=== PATIENT | female | born 1960 | race Caucasian/White ===

== ENCOUNTER → 2016-10-11 | Outpatient (CLI) | payer MEDICARE ==
[~2016-10-11] MED LIST: ACTOS PO; ALPRAZOLAM PO; ASPIRIN PO; ASPIRIN81 M2 PO; ATENOLOL PO; BENICAR HCT 40-1 TA1 PO; BYETTA10 MCG/0.0 INJ; CADUET 5 MG/101 TAB PO; CELEXA PO; COZAAR25 MG PO; CYMBALTA PO; DARVOCET-N 1001 TAB PO; DESYREL50 MG PO; DIABETA2.5 MG PO; DIOVAN PO; EFFEXOR XR PO; GLUCOPHAGE XR500 MG PO; GLUCOTROL PO; GLUCOVANCE PO; HUMALOG MIX 75/10 ML SQ; HUMALOG MIX 75/23 ML; HUMALOG100 U/ML; HUMULIN 70/30 V10 ML SQ; HYDROCODON-ACE1 EAC7 PO; LASIX PO; LEVEMIR SUBQ; LIPITOR PO; LOSARTAN-HCTZ1 EAC1 PO; METFORMIN HCL500 M1 PO; METFORMIN PO; MICRO-K10 MEQ PO; MULTI VITAMIN1 EACH PO; NORVASC PO; NOVOLOG INSULIN SQ; PRAVACHOL PO; PRILOSEC PO; RELAFEN PO; SEVELLA PO; SIMVASTATIN20 MG PO; SIMVASTATIN5 MG PO; TENORMIN50 MG PO; TOPAMAX PO; TRAMADOL HCL50 M2 PO; TRAZODONE PO; TRESIBA; ULTRAM PO; VICTOZA
--- NOTE | ~2016-10-11 | MY11 ---
[facility] A Service [facility] RADIOLOGY TEXT RESULTS PATIENT: XI ORLANDO LOCATION: [facility] : 60 UNIT #: [id number] AGE: [address]: Skye Ramirez APRN SEX: F ORDER DR: [id number] [address] [id number] [id number] O MR#: [id number] Acc #: [id number] NAME: XI ORLANDO : 1960 SEX: F STUDY DATE/TIME: 10/11/2016 9:54 UNIT: [facility] ROOM: STUDY DESCRIPTION: MY Mammogram Screening Dig Yao Attending Physician: Skye Ramirez A.P.R.N. Referring Physician: Skye Ramirez A.P.R.N. Ordering Physician: Skye Ramirez A.P.R.N. Primary Care Physician: Skye Ramirez A.P.R.N. MEDICAL IMAGING REPORT This report is preliminary unless electronic signature is present. EXAM Digital screening mammogram with CAD INDICATION Routine screening. PROCEDURE Bilateral CC and MLO views and a right XCCL view obtained on a digital mammography unit. FDA-approved CAD device utilized. COMPARISON 10/03/2015 FINDINGS Scattered fibroglandular density. No dominant mass or suspicious calcification. IMPRESSION Negative screening mammogram. Screening interval in 1 year is suggested. Patients over the age of 40 are entered into a reminder system with target due date for the next mammogram. A result letter will also be sent to the patient. BIRADS: 1 Negative Dictated by... Jeffrey Forbes M.D. THIS IS AN ELECTRONICALLY VERIFIED REPORT [facility] A Service [facility] RADIOLOGY TEXT RESULTS PATIENT: XI ORLANDO LOCATION: [facility] : 60 UNIT #: [id number] AGE: [address]: Skye Ramirez APRN SEX: F ORDER DR: Jeffrey Forbes M.D. at 10/14/2016 7:43 AM ENRIQUE/abelardo TD: 10/11/2016 16:15 JOB #: [id number] MEDICAL IMAGING REPORT Page 1 of 1
== END | disposition home or self-care (01) ==
LOC: SMAM 09:11
DX: Z12.31 Encounter for screening mammogram for malignant neoplasm of breast (principal)
CPT/HCPCS: G0202